=== PATIENT | female | born 1945 | race Caucasian/White ===

== ENCOUNTER 2024-07-26 15:42 | Emergency (ER) | payer OTHER, MEDICARE ==
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
[2024-07-26] MEDS: IBUPROFEN 800 MG TAB PO STA (16:16)
[2024-07-26] MEDS: ACETAMINOPHEN TAB 500 MG TAB PO STA (16:16)
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
[2024-07-26 17:22] VITALS: RESP 16; TEMP 98
[2024-07-26 18:43] VITALS: BP 120/78; PULSE 86
== END 2024-07-26 18:44 | disposition home or self-care (01) ==
LOC: EC 15:42
DX: S20.219A Contusion of unspecified front wall of thorax, initial encounter (principal); V43.52XA Car driver injured in collision with other type car in traffic accident, initial encounter; Y92.410 Unspecified street and highway as the place of occurrence of the external cause
CPT/HCPCS: 71046; 72170; 99284